=== PATIENT | male | born 1955 | race Caucasian/White ===

== ENCOUNTER 2019-03-14 08:00 | Outpatient (RCR) | payer MEDICARE, BC | END 2019-03-14 08:30 | disposition still patient (30) | LOC: PT 08:00 | DX: Z98.890 Other specified postprocedural states (principal) ==

== ENCOUNTER 2024-05-17 23:54 | Emergency (ER) | payer MEDICARE, BC ==
[~2024-05-17] VITALS: Ht 175.3 cm; Wt 79.5 kg
[2024-05-18] MEDS ORDERED: NORVASC 10MG10 MG PO (00:01)
[2024-05-18] MEDS ORDERED: HCTZ 25MG25 MG PO (00:01)
[2024-05-18] MEDS ORDERED: ATORVASTATIN CA40 MG PO (00:02)
[2024-05-18] MEDS ORDERED: ASPIRIN 81M81 MG/TA2 PO (00:02)
[2024-05-18] MEDS ORDERED: TADALAFIL5 M1 PO (00:02)
[2024-05-18] MEDS ORDERED: Ketorolac 30 MG/ML VIAL IV ONE (00:30)
[2024-05-18] MEDS ORDERED: Ondansetron 4 MG/2 ML VIAL IV ONE (00:30)
[2024-05-18] MEDS ORDERED: NS 1,000 ML IV SCH (00:30)
[2024-05-18 00:36] LABS: BASO # 0.04 K/mm3 (0.02-0.10); EOS % 3.1 % (0.0-4.0); HEMATOCRIT 49.2 % (42.0-52.0); HEMOGLOBIN 16.7 g/dL (13.5-18.0); LYMPH# 1.19 K/mm3 (1.50-4.00); MEAN CELL VOLUME 82 fl (78-100); MEAN CORPUSCULAR HEMOGLOBIN 28 pg (27-31); MEAN CORPUSCULAR HGB CONC 34 g/dL (33-37); MEAN PLATELET VOLUME 10.4 fl (7.4-10.4); MONO # 0.63 K/mm3 (0.20-0.80); NEU # 7.47 K/mm3 (1.40-6.50); PLATELET COUNT 253 K/mm3 (130-400); RED BLOOD COUNT 5.97 M/mm3 (4.20-5.60); WHITE BLOOD COUNT 9.7 K/mm3 (4.8-10.8)
[2024-05-18 00:39] LABS: ALBUMIN 4.3 g/dL (3.4-4.8)
[2024-05-18 00:40] LABS: CALCIUM 9.8 mg/dL (8.3-10.5)
[2024-05-18 00:41] LABS: TOTAL PROTEIN 7.7 g/dL (6.2-8.1)
[2024-05-18 00:43] LABS: TOTAL BILIRUBIN 0.9 mg/dL (0.2-1.2)
[2024-05-18] MEDS ORDERED: Iohexol 300 - 100 ML VIAL IV ONE (01:29)
[2024-05-18 01:38] LABS: PH-URINE 8.5 (5.0 - 8.0); URINE APPEARANCE SLIGHTLY CLOUDY (CLEAR); URINE BILIRUBIN NEGATIVE (NEGATIVE); URINE COLOR YELLOW (YELLOW); URINE GLUCOSE NEGATIVE (NEGATIVE); URINE KETONE TRACE (NEGATIVE); URINE PROTEIN(semi-quant) NEGATIVE (NEGATIVE)
[2024-05-18 01:39] LABS: URINE BLOOD NEGATIVE (NEGATIVE); URINE LEUKOCYTE ESTERASE NEGATIVE (NEGATIVE); URINE NITRATE NEGATIVE (NEGATIVE)
[2024-05-18 02:33] VITALS: BP 146/85
[2024-05-18] MEDS ORDERED: KETOROLAC10 MG PO (02:34)
[2024-05-18] MEDS ORDERED: ZOFRAN ODT4 MG PO (02:34)
== END 2024-05-18 02:43 | disposition home or self-care (01) ==
LOC: ED 23:54
PROVIDERS: Nurse Practitioner
DX: K80.10 Calculus of gallbladder with chronic cholecystitis without obstruction (principal); K57.90 Diverticulosis of intestine, part unspecified, without perforation or abscess without bleeding; U07.1 COVID-19; R79.82 Elevated C-reactive protein (CRP); Z90.49 Acquired absence of other specified parts of digestive tract; Z79.82 Long term (current) use of aspirin
CPT/HCPCS: J1885; J2405; J7030; Q9967

== ENCOUNTER → 2024-05-22 | Outpatient (CLI) | payer MEDICARE, BC ==
[~2024-05-22] MED LIST: ASPIRIN 81M81 MG/TA2 PO; ATORVASTATIN CA40 MG PO; HCTZ 25MG25 MG PO; KETOROLAC10 MG PO; NORVASC 10MG10 MG PO; TADALAFIL5 M1 PO; ZOFRAN ODT4 MG PO
== END ==
LOC: RAD 09:16
DX: K80.20 Calculus of gallbladder without cholecystitis without obstruction (principal)